=== PATIENT | male | born 1995 ===

== ENCOUNTER 2017-03-12 22:27 | Emergency (ER) | payer OTHER ==
--- NOTE | 2017-03-12 23:20 | DIAGNOSTIC IMAGING REPORT ---
PROCEDURE: CT CERVICAL SPINE W/O CONTRAST INDICATION: PAIN TECHNIQUE: Axial CT images were obtained through the cervical spine. Coronal and sagittal reformations were created. No comparison. COMPARISON: None. FINDINGS: The craniocervical junction is intact. The cervical vertebral bodies are normal in height without evidence of fracture. Straightening of the normal cervical lordosis, probably due to position and the C-collar. The alignment and disk spacing is normal. The central canal is patent. No spinal stenosis or neural foraminal narrowing. No prevertebral or paravertebral soft-tissue swelling or mass. Patent airway and normal lung apices. IMPRESSION: 1. Normal CT of the cervical spine without evidence of acute trauma. 2. Findings called to the emergency room. All CT scans at this facility use dose modulation, iterative reconstruction, and/or weight-based dosing when appropriate to reduce radiation dose to as low as reasonably achievable.
--- NOTE | 2017-03-12 23:21 | DIAGNOSTIC IMAGING REPORT ---
PROCEDURE: CT HEAD WITHOUT CONTRAST INDICATION: HEADACHE TECHNIQUE: Axial CT images were acquired through the head. Coronal and sagittal reformations were created. COMPARISON: None. FINDINGS: No intracranial hemorrhage or extraaxial fluid collections. Ventricles are normal in size, shape and position. There is no mass, mass effect or midline shift. The gee-white matter differentiation is normal. There is no edema. The calvarium is intact. The paranasal sinuses and mastoid air cells are normally aerated. The extracranial soft tissues and orbits are normal. IMPRESSION: 1. No CT evidence of acute intracranial process. 2. Findings discussed with Devi at [address] scans at this facility use dose modulation, iterative reconstruction, and/or weight-based dosing when appropriate to reduce radiation dose to as low as reasonably achievable.
--- NOTE | 2017-03-12 23:26 | DIAGNOSTIC IMAGING REPORT ---
PROCEDURE: XR PELVIS 1 OR 2 VIEWS INDICATION: TRAUMA/INJURY TECHNIQUE: AP pelvis. COMPARISON: None. FINDINGS: Normal mineralization. Pelvic rings are intact. Normal bony alignment. No significant degenerative change at the hip and sacroiliac joints. Bowel gas pattern and intrapelvic soft tissues are normal. No unusual calcifications. IMPRESSION: 1. Intact pelvis.
--- NOTE | 2017-03-12 23:27 | DIAGNOSTIC IMAGING REPORT ---
PROCEDURE: XR CHEST 1 VIEW INDICATION: CHEST PAIN TECHNIQUE: Single view chest. 1050 hours COMPARISON: None. FINDINGS: The cardiomediastinal contour and central vasculature are normal. The lungs are clear without focal consolidation, pleural effusion or pneumothorax. The osseous structures are intact. IMPRESSION: 1. No evidence of acute chest trauma.
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
--- NOTE | 2017-03-12 23:37 | ED ORDER SUMMARY ---
..... Patient: KRISTI MCNEIL OrderSheet [facility] VisitID: [id number] [place] [address] 21y, M Registration Date/Time: 03/12/2017 ORDER SHEET Weight: 61.2 kg (stated) Allergies: No Known Drug Allergy GENERAL ORDERS: Chest 1V Urgent (22:33 03/12/2017 EKoroleva P.A.-C) (Ack 22:38 AMcQuoid ER Tech1) (22:56 JSanders R.N.) CT Head wo Cont Urgent (22:33 03/12/2017 EKoroleva P.A.-C) (Ack 22:38 AMcQuoid ER Tech1) (22:56 JSanders R.N.) UA-Culture if indicated Urgent (22:35 03/12/2017 EKoroleva P.A.-C) (Ack 22:38 AMcQuoid ER Tech1) (23:34 JSanders R.N.) PT with INR Urgent (22:35 03/12/2017 EKoroleva P.A.-C) (Ack 22:38 AMcQuoid ER Tech1) (22:42 JSanders R.N.) PTT Urgent (22:35 03/12/2017 EKoroleva P.A.-C) (Ack 22:38 AMcQuoid ER Tech1) (22:42 JSanders R.N.) CBC w Diff Urgent (22:35 03/12/2017 EKoroleva P.A.-C) (Ack 22:38 AMcQuoid ER Tech1) (22:42 JSanders R.N.) CMP Urgent (22:35 03/12/2017 EKoroleva P.A.-C) (Ack 22:38 AMcQuoid ER Tech1) (22:42 JSanders R.N.) BMP Urgent (22:35 03/12/2017 EKoroleva P.A.-C) (Ack 22:38 AMcQuoid ER Tech1) (Cancelled: Patient Altered Iavdescvo35:38 EKoroleva P.A.-C) Pelvis 1 or 2V Urgent (22:35 03/12/2017 EKoroleva P.A.-C) (Ack 22:38 AMcQuoid ER Tech1) (22:56 JSanders R.N.) CT Cervical Spine wo Cont Urgent (22:35 03/12/2017 EKoroleva P.A.-C) (Ack 22:38 AMcQuoid ER Tech1) (22:56 JSanders R.N.) MEDICATION ORDERS: Tylenol PO 650 mg (NOW) (23:35 03/12/2017 EKjaredlehermelinda P.A.-C) (23:39 JSanders R.N.) Zofran ODT PO 4 mg (NOW) (23:35 03/12/2017 EKoroleva P.A.-C) (23:39 JSanders R.N.) IV FLUIDS: ORDER SHEET NOTES: [Electronically signed by Aida QuinonezANils-Dago (23:58 03/12/2017)] [Electronically signed by Hubert Ram R.N. (00:38 03/13/2017)] [Electronically locked/signed by Hubert Ram R.N. (00:38 03/13/2017)]
--- NOTE | 2017-03-12 23:37 | ED ORDER SUMMARY ---
..... Patient: KRISTI MCNEIL OrderSheet [facility] VisitID: [id number] [place] [address] 21y, M Registration Date/Time: 03/12/2017 ORDER SHEET Weight: 61.2 kg (stated) Allergies: No Known Drug Allergy GENERAL ORDERS: Chest 1V Urgent (22:33 03/12/2017 EKoroleva P.A.-C) (Ack 22:38 AMcQuoid ER Tech1) (22:56 JSanders R.N.) CT Head wo Cont Urgent (22:33 03/12/2017 EKoroleva P.A.-C) (Ack 22:38 AMcQuoid ER Tech1) (22:56 JSanders R.N.) UA-Culture if indicated Urgent (22:35 03/12/2017 EKoroleva P.A.-C) (Ack 22:38 AMcQuoid ER Tech1) (23:34 JSanders R.N.) PT with INR Urgent (22:35 03/12/2017 EKoroleva P.A.-C) (Ack 22:38 AMcQuoid ER Tech1) (22:42 JSanders R.N.) PTT Urgent (22:35 03/12/2017 EKoroleva P.A.-C) (Ack 22:38 AMcQuoid ER Tech1) (22:42 JSanders R.N.) CBC w Diff Urgent (22:35 03/12/2017 EKoroleva P.A.-C) (Ack 22:38 AMcQuoid ER Tech1) (22:42 JSanders R.N.) CMP Urgent (22:35 03/12/2017 EKoroleva P.A.-C) (Ack 22:38 AMcQuoid ER Tech1) (22:42 JSanders R.N.) BMP Urgent (22:35 03/12/2017 EKoroleva P.A.-C) (Ack 22:38 AMcQuoid ER Tech1) (Cancelled: Patient Altered Iulrgzodb10:38 EKoroleva P.A.-C) Pelvis 1 or 2V Urgent (22:35 03/12/2017 EKoroleva P.A.-C) (Ack 22:38 AMcQuoid ER Tech1) (22:56 JSanders R.N.) CT Cervical Spine wo Cont Urgent (22:35 03/12/2017 EKoroleva P.A.-C) (Ack 22:38 AMcQuoid ER Tech1) (22:56 JSanders R.N.) MEDICATION ORDERS: Tylenol PO 650 mg (NOW) (23:35 03/12/2017 EKjaredlehermelinda P.A.-C) (23:39 JSanders R.N.) Zofran ODT PO 4 mg (NOW) (23:35 03/12/2017 EKoroleva P.A.-C) (23:39 JSanders R.N.) IV FLUIDS: ORDER SHEET NOTES: [Electronically signed by Aida QuinonezANils-Dago (23:58 03/12/2017)] [Electronically signed by Hubert Ram R.N. (00:38 03/13/2017)] [Electronically locked/signed by Hubert Ram R.N. (00:38 03/13/2017)]
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
--- NOTE | 2017-03-13 00:38 | ED MAR SUMMARY ---
..... Medication Administration Record [facility] [address] [place] [address] Patient: KRISTI MCNEIL Visit ID: [id number] 21y, M Weight: 61.2 kg Height/Length: 64 in BMI: 23.2 ALLERGIES: No Known Drug Allergy Given 23:39 03/12/2017 Svetlana Pedraza, RNilsN. Medication Administered: TYLENOL [PO] (ACETAMINOPHEN), Dose: 650 mg Tablets PO. Medication Ordered: Tylenol PO 650 mg (NOW). Given 23:39 03/12/2017 Svetlana Pedraza, R.N. Medication Administered: ZOFRAN ODT [PO] (ONDANSETRON), Dose: 4 mg Oral Disintegrating Tablets PO. Medication Ordered: Zofran ODT PO 4 mg (NOW).
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
--- NOTE | 2017-03-13 00:38 | ED MED RECONCILIATION SUMMARY ---
Patient: KRISTI MCNEIL Medication Reconciliation Report [facility] VisitID: [id number] [address] [place] [address] 21y, M Registration Date/Time: 03/12/2017 Weight: 61.2 kg Height/Length: 64 in. BMI: 23.2 ALLERGIES: No Known Drug Allergy The patient's Home Medications are listed below: NONE. The source(s) of the original Home Medication information: Not obtained. The following Medications were given to the patient in the Emergency Department: Zofran ODT [PO] PO 4 mg, administered: 03/12/2017 11:39:00 PM Tylenol [PO] PO 650 mg, administered: 03/12/2017 11:39:00 PM The following Medications were prescribed to the patient: Zofran (orally disintegrating tablets) 4 mg: take 1 orally every 6 hours for 4 days as needed for nausea and vomiting. Dispense fifteen (15). No refill. Substitution is permissible. -- Aida Quinonez, P.A.Daryl Tylenol ER 650 mg (available over the counter): take 1 orally every 6 hours for 5 days, as needed for pain. Dispense fifteen (15). No refill. Substitution is permissible. -- Aida Quinonez P.A.-Dago
--- NOTE | 2017-03-13 00:38 | ED MED RECONCILIATION SUMMARY ---
Patient: KRISTI MCNEIL Medication Reconciliation Report VisitID: [id number] [address] [place] [address] 21y, M Registration Date/Time: 03/12/2017 Weight: 61.2 kg Height/Length: 64 in. BMI: 23.2 ALLERGIES: No Known Drug Allergy The patient's Home Medications are listed below: NONE. The source(s) of the original Home Medication information: Not obtained. The following Medications were given to the patient in the Emergency Department: Zofran ODT [PO] PO 4 mg, administered: 03/12/2017 11:39:00 PM Tylenol [PO] PO 650 mg, administered: 03/12/2017 11:39:00 PM The following Medications were prescribed to the patient: Zofran (orally disintegrating tablets) 4 mg: take 1 orally every 6 hours for 4 days as needed for nausea and vomiting. Dispense fifteen (15). No refill. Substitution is permissible. -- Aida Quinonez, P.A.Daryl Tylenol ER 650 mg (available over the counter): take 1 orally every 6 hours for 5 days, as needed for pain. Dispense fifteen (15). No refill. Substitution is permissible. -- Aida Quinonez P.A.-Dago
--- NOTE | 2017-03-13 00:38 | ED MAR SUMMARY ---
..... Medication Administration Record [facility] [address] [place] [address] Patient: KRISTI MCNEIL Visit ID: [id number] 21y, M Weight: 61.2 kg Height/Length: 64 in BMI: 23.2 ALLERGIES: No Known Drug Allergy Given 23:39 03/12/2017 Svetlana Pedraza, RNilsN. Medication Administered: TYLENOL [PO] (ACETAMINOPHEN), Dose: 650 mg Tablets PO. Medication Ordered: Tylenol PO 650 mg (NOW). Given 23:39 03/12/2017 Svetlana Pedraza, R.N. Medication Administered: ZOFRAN ODT [PO] (ONDANSETRON), Dose: 4 mg Oral Disintegrating Tablets PO. Medication Ordered: Zofran ODT PO 4 mg (NOW).
== END 2017-03-12 23:46 | disposition home or self-care (01) ==
LOC: ED SRH 22:27
DX: S06.0X9A Concussion with loss of consciousness of unspecified duration, initial encounter (principal); V86.59XA Driver of other special all-terrain or other off-road motor vehicle injured in nontraffic accident, initial encounter; V93.89XA Other injury due to other accident on board unspecified watercraft, initial encounter; Y99.9 Unspecified external cause status; Y92.9 Unspecified place or not applicable
CPT/HCPCS: 90004; 90100; 94001; 94060; 95059